=== PATIENT | male | born 1950 | race Caucasian/White ===

== ENCOUNTER → 2017-06-29 | Outpatient (CLI) | payer MEDICARE, BC | LOC: ZCOL.LAB 17:41 | DX: Z01.89 Encounter for other specified special examinations (principal) ==

== ENCOUNTER → 2017-06-29 | Outpatient (CLI) | payer MEDICARE, BC | LOC: COL.LAB 19:13 | DX: Z01.89 Encounter for other specified special examinations (principal) ==